=== PATIENT | male | born 1980 | race Caucasian/White ===

== ENCOUNTER 2018-08-14 14:27 | Emergency (ER) | payer BC ==
--- NOTE | 2018-08-14 14:33 | PDOC ---
History of Present Illness - General History Source: Patient Exam Limitations: No Limitations - History of Present Illness Initial Comments: 08/14/18 15:35 The patient is a 38 year old male, with a significant past medical history of a quadriplegia, who presents to the emergency department with nausea with emesis and difficulty breathing for 2 days. He was evaluated 2 weeks ago for similar symptoms at [facility]. The patient followed with Dr. Keita, at which time he received a blood transfusion for a questionably low white blood cell count. He denies any recent fevers, chills, headache or dizziness. He denies any vomit , diarrhea or constipation. He denies any recent chest pain. He denies any recent dysuria, frequency, urgency or hematuria. Allergies: NKA Social History: Former smoker. Denies EtOH use and recreational drug use. Primary Care Physician: Dr. Keita <Dwain Alvarado - Last Filed: 08/14/18 17:36> <Stephen Lombardi - Last Filed: 08/14/18 17:51> - General Chief Complaint: Nausea Stated Complaint: NAUSEA Time Seen by Provider: 08/14/18 14:32 Past History <Dwain Alvarado - Last Filed: 08/14/18 17:36> - Past Medical History GI Disorders: Yes (GERD) - Suicide/Smoking/Psychosocial Hx Smoking Status: Yes Smoking History: Never smoked Have you smoked in the past 12 months: No Number of Cigarettes Smoked Daily: 0 Hx Alcohol Use: No Drug/Substance Use Hx: No Substance Use Type: None <Stephen Lombardi - Last Filed: 08/14/18 17:51> - Past Medical History Allergies/Adverse Reactions: Allergies Allergy/AdvReac Type Severity Reaction Status Date / Time No Known Allergies Allergy Verified 08/14/18 14:27 Home Medications: Ambulatory Orders Alprazolam 0.25 mg PO QID 08/18/14 Escitalopram Oxalate [Lexapro -] 20 mg PO DAILY 08/18/14 Gabapentin 600 mg PO TID 08/18/14 traZODone HCL [Desyrel -] 100 mg PO HS 08/18/14 Baclofen 0 mg PO QID 02/09/16 Midodrine HCl [Proamatine -] 5 mg PO BID 02/09/16 Oxycodone HCl [Oxycontin] 30 mg PO Q4H 02/09/16 Ascorbic Acid [Vitamin C] 1,000 mg PO DAILY 08/14/18 Biotin 5,000 mcg PO DAILY 08/14/18 Cholecalciferol (Vitamin D3) [Vitamin D3 -] 400 unit PO DAILY 08/14/18 Clonazepam 0.5 mg PO BID 08/14/18 Ferrous Sulfate [Iron] 325 mg PO DAILY 08/14/18 Finasteride 1 mg PO DAILY 08/14/18 Furosemide [Lasix] 40 mg PO DAILY 08/14/18 Potassium 99 mg PO DAILY 08/14/18 Vitamin A Palmitate [Vitamin A] 2,400 unit PO DAILY 08/14/18 Vitamin E - 400 unit PO DAILY 08/14/18 Review of Systems - Review of Systems Able to Perform ROS?: Yes Constitutional: No: Symptoms Reported, See HPI, Chills, Diaphoresis, Fever, Loss of Appetite, Malaise, Night Sweats, Weakness, Weight Stable, Unintentional Wgt. Loss, Unexplained wgt Loss, Other HEENTM: No: Symptoms Reported, See HPI, Eye Pain, Blurred Vision, Tearing, Recent change in vision, Double Vision, Cataracts, Ear Pain, Ocular Prothesis, Ear Discharge, Nose Pain, Nose Congestion, Tinnitus, Nose Bleeding, Hearing Loss , Throat Pain, Throat Swelling, Mouth Pain, Dental Problems, Difficulty Swallowing, Mouth Swelling, Other Respiratory: Yes: Shortness of Breath. No: Symptoms reported, See HPI, Cough, Orthopnea, SOB with Exertion, SOB at Rest, Stridor, Wheezing, Productive cough, Hemoptysis, Other Cardiac (ROS): No: Symptoms Reported, See HPI, Chest Pain, Edema, Irregular Heart Rate, Lightheadedness, Palpitations, Syncope, Chest Tightness, Other ABD/GI: Yes: Nausea. No: Symptoms Reported, See HPI, Abdominal Distended, Abd. Pain w/ defecation, Blood Streaked Bowels, Constipated, Diarrhea, Difficulty Swallowing, Poor Appetite, Poor Fluid Intake, Rectal Bleeding, Vomiting, Indigestion, Abdominal cramping, Tarry Stools, Other : No: Symptoms Reported, See HPI, Burning, Dysuria, Discharge, Frequency, Flank Pain, Hematuria, Incontinence, Pain, Urgency, Testicular Mass, Testicular Swelling, Lesions, Testicular Pain, Other Musculoskeletal: No: Symptoms Reported, See HPI, Back Pain, Gout, Joint Pain, Muscle Pain, Muscle Weakness, Neck Pain, Other Integumentary: No: Symptoms Reported, See HPI, Bruising, Change in Color, Change in Hair/Nails, Dryness, Erythema, Flushing, Lesions, Lumps, Pallor, Pruritus, Rash, Sweating, Other Neurological: Yes: Pre-Existing Deficit (quadripalegic and right upper extremity paralysis). No: Symptoms reported, See HPI, Headache, Numbness, Paresthesia, Seizure, Tingling, Tremors, Dizziness, Other Psychiatric: No: Anxiety, Depression, Frequent Crying, Stressors, Sleep Pattern Change, Emotional Problems, Mood Swings, Change in Appetite, Other Endocrine: No: Symptoms Reported, See HPI, Excessive Sweating, Flushing, Intolerance to Cold, Intolerance to Heat, Increased Hunger, Increased Thirst, Increased Urine, Unexplained Weight Gain, Unexplained Weight Loss, Change in Weight, Other Hematologic/Lymphatic: No: Symptoms Reported, See HPI, Anemia, Blood Clots, Easy Bleeding, Easy Bruising, Bleeding Diathesis, Lymph Node Abnormalities, Swollen Glands, Other All Other Systems: Reviewed and Negative <Dwain Alvarado - Last Filed: 08/14/18 17:36> *Physical Exam - Vital Signs Last Vital Signs Temp Pulse Resp BP Pulse Ox 98.4 F 95 H 20 120/72 95 08/14/18 14:27 08/14/18 14:27 08/14/18 14:27 08/14/18 14:27 08/14/18 14:27 - Physical Exam General Appearance: Yes: Thin. No: Nourished, Appropriately Dressed, Apparent Distress, Disheveled, Mild Distress, Moderate Distress, Severe Distress, Alcohol on Breath, Intoxicated, Cachetic, Obese, Other HEENT: negative: EOMI, KERRIE, Normal ENT Inspection, Normal Voice, Symmetrical, TMs Normal, Pharynx Normal, Pale Conjunctivae, Photophobia, Scleral Icterus (R) , Scleral Icterus (L), Muffled/Hoarse voice, Pharyngeal Erythema, Tonsillar Exudate, Tonsillar Erythema, Nasal Congestion, Rhinorrhea, Sinus Tenderness, Orbits, Hearing Decreased, Hearing Grossly Normal, TM Bulging, TM Dull, TM Erythema, Lesions, [place], Excessive drooling, Thrush, Other Neck: positive: Tender, Trachea midline, Normal Thyroid, Supple, Other (well healed tracheostomy scar at base of neck) Respiratory/Chest: positive: Lungs Clear, Normal Breath Sounds Cardiovascular: positive: Regular Rhythm, Regular Rate, Edema (lower extemity) Gastrointestinal/Abdominal: positive: Normal Bowel Sounds, Soft Extremity: positive: Other (lower extremity edema) Integumentary: positive: Pale, Other (Presacral decubitus ulcer 10cm in diameter and 4cm deep.) Neurologic: positive: Alert, Other (sluggish, mild slurred speech) <Dwain Alvarado - Last Filed: 08/14/18 17:36> ED Treatment Course - LABORATORY CBC & Chemistry Diagram: 08/14/18 15:39 08/14/18 15:39 <Dwain Alvarado - Last Filed: 08/14/18 17:36> - LABORATORY CBC & Chemistry Diagram: 08/14/18 15:39 08/14/18 15:39 <Stephen Lombardi - Last Filed: 08/14/18 17:51> Medical Decision Making - Medical Decision Making 08/14/18 15:32 A call was placed to Dr. Keita's office and was made aware he is with a patient awaiting call back. 5:00pm Call returned from Dr. Keita, case was discussed. Made aware that patient was seen at [facility] 2 weeks ago and was advised to be admitted. At this time the patient left AMA. Today the patient was advised to be admitted due to his presacral decubitus ulcer. Made aware that he has an at home health aid and would like leave AMA. Upon reevaluation the patient is no longer short of breath. <Dwain Alvarado - Last Filed: 08/14/18 17:36> *DC/Admit/Observation/Transfer - Attestations Scribe Attestion: 08/14/18 15:43 Documentation prepared by Dwain Alvarado, acting as medical center manager for Stephen Lombardi MD. <Dwain Alvarado - Last Filed: 08/14/18 17:36> - Discharge Dispostion Decision to Admit order: No <Stephen Lombardi S - Last Filed: 08/14/18 17:51> Diagnosis at time of Disposition: Decubital ulcer Qualifiers: Pressure injury location: sacral region Pressure injury stage: unspecified pressure injury stage Qualified Code(s): L89.159 - Pressure ulcer of sacral region, unspecified stage - Discharge Dispostion Disposition: AGAINST MEDICAL ADVICE Condition at time of disposition: Stable - Referrals Referrals: Erickson Keita [Non Staff, Medical] - - Patient Instructions Printed Discharge Instructions: How to Prevent Pressure Ulcers Additional Instructions: Call your doctor for follow up and apropriate care of your pressure ulcers
[2018-08-14 14:57] VITALS: BMI 31.9
[2018-08-14] MEDS ORDERED: ONDANSETRON 4 MG/2 ML VIAL IVPUSH ONE (15:46)
[2018-08-14] MEDS ORDERED: SODIUM CHLORIDE 500 ML IV STA (15:47)
[2018-08-14] MEDS ORDERED: ONDANSETRON 4 MG/2 ML VIAL ONE (15:58)
[2018-08-14 16:35] LABS: HEMATOCRIT 33.9 % (35.4-49); HEMOGLOBIN 10.1 GM/dl (11.7-16.9); MCHC 29.9 g/dl (32.0-35.9); MEAN CELL VOLUME 66.5 fl (80-96); MEAN PLT VOLUME 7.9 fl (7.5-11.1); PLATELET COUNT 485 K/MM3 (134-434); WHITE BLOOD COUNT 7.8 K/mm3 (4.0-10.8)
[2018-08-14 16:41] LABS: MCH 19.9 pg (25.7-33.7)
[2018-08-14 16:43] LABS: ALBUMIN 2.3 g/dl (3.5-5.0); ALK PHOS 108 U/L (32-92); ANION GAP 11 MMOL/L (8-16); BILIRUBIN,TOTAL 1.9 mg/dl (0.2-1.0); BLOOD UREA NITROGEN 7 mg/dl (7-18); CHLORIDE 95 mmol/L (98-107); CO2 30 mmol/L (22-28); CREATININE 0.6 mg/dl (0.6-1.3); GLUCOSE,RANDOM 116 mg/dl (74-106); INR 2.12 (0.82-1.09); POTASSIUM 4.8 mmol/L (3.5-5.1); PROTHROMBIN TIME (PATIENT) 23.4 SEC (10.2-13.0); SGOT/AST 57 U/L (10-42); SGPT/ALT 15 U/L (10-40); SODIUM 136 mmol/L (136-145); TOT PROT 6.7 g/dl (6.4-8.3)
[2018-08-14 17:14] VITALS: BP 106/56; PULSE 91; TEMP 98
[2018-08-14 20:05] LABS: ANISOCYTOSIS 3+; OVALOCYTE 1+; PLATELET ESTIMATE SLT INCREASE
--- NOTE | 2018-08-15 16:12 | EKG ---
Test Reason : Blood Pressure : / mmHG Vent. Rate : 089 BPM Atrial Rate : 089 BPM P-R Int : 176 ms QRS Dur : 096 ms QT Int : 390 ms P-R-T Axes : 037 006 021 degrees QTc Int : 474 ms NORMAL SINUS RHYTHM POSSIBLE INFERIOR INFARCT , AGE UNDETERMINED ABNORMAL ECG WHEN COMPARED WITH ECG OF 09-FEB-2016 13:47, NO SIGNIFICANT CHANGE WAS FOUND Confirmed by MD Pedro, Luis Alberto ([id number]) on 08/15/2018 4:12:47 PM Referred By: ROGELIO Confirmed By:Luis Alberto Vasquez MD
--- NOTE | 2018-08-18 12:33 | PDOC ---
Patient Follow-up (Call Back) - Post ED Follow - Up Condition at time of discharge: Stable Disposition at time of original discharge: AGAINST MEDICAL ADVICE Reason for Call Back: Abnwl. Microbiology (Call attempted re: wound culture result but no answer, left voicemail)
== END 2018-08-14 18:00 | disposition left against medical advice (07) ==
LOC: FER 14:27
PROC: 3E033GC Introduction of Other Therapeutic Substance into Peripheral Vein, Percutaneous Approach (ICD-10-PCS; principal; 2018-08-14)
PROC: 3E0337Z Introduction of Electrolytic and Water Balance Substance into Peripheral Vein, Percutaneous Approach (ICD-10-PCS; 2018-08-14)
DX: L89.159 Pressure ulcer of sacral region, unspecified stage (principal)
CPT/HCPCS: 36415; 71045-TC-FY; 80053; 85025; 85610; 87070; 87186; 87205; 93005; 99284-25